=== PATIENT | male | born 1980 | race African-American/Black ===

== ENCOUNTER → 2017-07-02 | Day surgery (SDC) | payer OTHER ==
[~2017-07-02] MED LIST: FENTANYL CITRATE/PF 100MCG/2 ML INJ ONE; LIDOCAINE HCL 2% LOCAL INJ 5 ML SDV VIAL INJ ONE; MIDAZOLAM HCL 2 MG/2 ML VIAL ONE; PROPOFOL IV EMULSION 10 MG/ML 20 ML VIAL ONE
[2017-07-02 16:46] LABS: WBC,FECAL (FECAL LACTOFERRIN) NEGATIVE (NEGATIVE)
[2017-07-03 13:00] LABS: C DIFFICILE TOXIN A&B AMP PROB NEGATIVE (NEGATIVE)
--- NOTE | 2017-07-04 15:48 | Operative Report ---
DATE OF PROCEDURE: July 02, 2017 REFERRING PHYSICIAN: Dr. Slade Aranda. PROCEDURE PERFORMED: Colonoscopy and polypectomy. INDICATIONS FOR COLONOSCOPY: Colorectal cancer screening, personal history of colon polyps, loose stools. MEDICATION: Patient was done under MAC. Please see anesthesiologist's note. PROCEDURE: With the patient in the left lateral decubitus position, the flexible fiberoptic Olympus colonoscope was inserted into the rectum with ease and advanced all the way to the cecum. Mucosa overlying the cecum appeared to be within normal limits. The scope was then advanced through the ileocecal valve into the terminal ileum, and biopsies were obtained. The scope was then withdrawn back into the colon. It was then withdrawn slowly. Mucosa overlying the ascending and the transverse grossly appeared to be within normal limits. There were some patchy mild inflammatory changes noted in the left colon. Multiple random biopsies were obtained. One polyp was hot biopsied from the descending colon. One polyp was hot biopsied from the sigmoid colon. The scope was then retroflexed into the distal rectum and small internal hemorrhoids were noted, none of which was actively bleeding. The scope was then straightened out. The rectosigmoid area as well as the distal rectal area were decompressed. The scope was subsequently withdrawn after securing an adequate stool specimen that was sent for the appropriate stool studies. Patient tolerated the procedure well. IMPRESSION: 1. Descending colon polyp hot biopsied. 2. Sigmoid colon polyp hot biopsied. 3. Patchy mild left-sided colitis. 4. Proctitis, mild. 5. Internal hemorrhoids, none actively bleeding. PLAN: Follow up histology. Follow up stool studies. Initiate VSL#3 one p.o. b.i.d. and Bentyl 10 mg 1 p.o. t.i.d. Patient will need a followup colonoscopy in 3 to 5 years. Job#: [id number] EV cc:SLADE ARANDA MD
== END | disposition home or self-care (01) ==
LOC: OR 12:35
PROVIDERS: ATTEND Internal Medicine Gastroenterology
DX: Z12.11 Encounter for screening for malignant neoplasm of colon (principal); K63.5 Polyp of colon; K62.1 Rectal polyp; K51.50 Left sided colitis without complications; K62.89 Other specified diseases of anus and rectum; K64.8 Other hemorrhoids; Z68.31 Body mass index [BMI] 31.0-31.9, adult
CPT/HCPCS: 45384; 83630; 83993; 87045; 87177; 87328; 87493; J2001; J2250; 45380